=== PATIENT | female | born 1940 | race African-American/Black ===

== ENCOUNTER → 2022-06-22 | Outpatient (CLI) | payer MEDICARE, MEDICAID ==
[~2022-06-22] MED LIST: LIDOCAINE HCL/EPINEPHRINE 1%-EPI 1:100,000 20 ML VIAL ONE; SODIUM BICARBONATE 4% (2.4MEQ) 5ML VIAL IV ONE
== END | disposition home or self-care (01) ==
LOC: MAMMO 09:11
PROVIDERS: ATTEND Internal Medicine Geriatric Medicine
DX: N63.25 Unspecified lump in the left breast, overlapping quadrants (principal)
CPT/HCPCS: 76642; 77066; Z7610; J3490